=== PATIENT | female | born 1980 | race American Indian/Alaskan Native ===

== ENCOUNTER 2017-01-12 23:37 | Emergency (ER) | payer MEDICARE ==
[2017-01-13 01:35] LABS: Basophils % (Auto) 0.2 % (0.0-1.8); Eosinophils % (Auto) 1.3 % (0.0-4.3); Hematocrit 36.3 % (30.3-42.9); Hemoglobin 12.2 gm/dl (10.1-14.3); Mean Corpuscular HGB Conc 34 % (30-34); Mean Corpuscular Hemoglobin 31 pg (28-32); Mean Corpuscular Volume 92 fl (79-97); Platelet Count 162 K/mm3 (140-440); Red Blood Count 3.95 M/mm3 (3.65-5.03); White Blood Count 9.9 K/mm3 (4.5-11.0)
[2017-01-13 01:56] LABS: Urine Drugs of Abuse Note Disclamer
[2017-01-13 02:23] LABS: Bilirubin,Urine NEG (Negative); Blood,Urine NEG (Negative); Ketones,Urine NEG (Negative); Leukocyte Esterase,Urine NEG (Negative); Mucus,Urine FEW /HPF; Nitrite,Urine NEG (Negative); Protein,Urine <15 mg/dL mg/dL (Negative)
[2017-01-13 02:32] LABS: RBC,Urine < 1.0 /HPF (0.0-6.0)
--- NOTE | 2017-01-13 03:27 | Emergency Department Report ---
ED Psych HPI - General Chief Complaint: Psych Stated Complaint: DELUSIONAL Time Seen by Provider: 01/13/17 03:24 Source: patient Mode of arrival: Ambulatory - History of Present Illness Initial Comments: She is a 36-year-old female with history of bipolar and schizophrenia who presents with delusions. Patient states that she is hearing auditory hallucinations and the voices are tolerated to multiple things. Patient states that she is very anxious. She states that she use MrKaley in vagus shot and then the severity of her symptoms are severe. Nothing makes it better or worse. Patient denies being in any pain. She also states that she currently denies any suicidal or homicidal ideation. But she states that if she goes without any treatment she "doesn't know what I'll do." - Related Data Home Medications Medication Instructions Recorded Confirmed Last Taken Invega Sustenna (Nf) 156 mg IM QMONTH 01/13/17 01/13/17 Unknown RisperDAL 3 mg PO BID 01/13/17 01/13/17 Unknown Allergies Allergy/AdvReac Type Severity Reaction Status Date / Time No Known Allergies Allergy Unverified 01/18/16 12:23 ED Review of Systems ROS: Stated complaint: DELUSIONAL Other details as noted in HPI Constitutional: denies: chills, fever Eyes: denies: eye pain, eye discharge, vision change ENT: denies: ear pain, throat pain Respiratory: denies: cough, shortness of breath, wheezing Cardiovascular: denies: chest pain, palpitations Endocrine: no symptoms reported Gastrointestinal: denies: abdominal pain, nausea, diarrhea Genitourinary: denies: urgency, dysuria, discharge Musculoskeletal: denies: back pain, joint swelling, arthralgia Skin: denies: rash, lesions Neurological: denies: headache, weakness, paresthesias Psychiatric: anxiety, depression, auditory hallucinations Hematological/Lymphatic: denies: easy bleeding, easy bruising ED Past Medical Hx - Past Medical History Hx Psychiatric Treatment: Yes (Bipolar, Schizoaffective, Paranoid) - Surgical History Additional Surgical History: Tonsillectomy - Social History Smoking Status: Current Some Day Smoker - Medications Home Medications: Home Medications Medication Instructions Recorded Confirmed Last Taken Type Invega Sustenna (Nf) 156 mg IM QMONTH 01/13/17 01/13/17 Unknown History RisperDAL 3 mg PO BID 01/13/17 01/13/17 Unknown History ED Physical Exam - General Limitations: No Limitations General appearance: alert, in no apparent distress - Head Head exam: Present: atraumatic, normocephalic - Eye Eye exam: Present: normal appearance - ENT ENT exam: Present: mucous membranes moist - Neck Neck exam: Present: normal inspection - Respiratory Respiratory exam: Present: normal lung sounds bilaterally. Absent: respiratory distress - Cardiovascular Cardiovascular Exam: Present: regular rate, normal rhythm. Absent: systolic murmur, diastolic murmur, rubs, gallop - GI/Abdominal GI/Abdominal exam: Present: soft, normal bowel sounds - Extremities Exam Extremities exam: Present: normal inspection - Back Exam Back exam: Present: normal inspection - Neurological Exam Neurological exam: Present: alert, oriented X3 - Psychiatric Psychiatric exam: Present: depressed, anxious, flat affect. Absent: homicidal ideation, suicidal ideation - Skin Skin exam: Present: warm, dry, intact, normal color. Absent: rash ED Course Vital Signs 01/13/17 01/13/17 01/13/17 00:49 02:22 09:14 Temperature 98.1 F 98.3 F 98.5 F Pulse Rate 107 H 68 76 Respiratory 18 16 20 Rate Blood Pressure 133/60 Blood Pressure 133/60 124/68 100/59 [Left] O2 Sat by Pulse 97 97 Oximetry 01/13/17 01/13/17 09:15 19:50 Temperature 97.6 F 98.6 F Pulse Rate 92 H 77 Respiratory 18 20 Rate Blood Pressure Blood Pressure 117/64 131/63 [Left] O2 Sat by Pulse 100 Oximetry ED Medical Decision Making - Lab Data Result diagrams: 01/13/17 01:02 01/13/17 01:02 Lab Results 01/13/17 01/13/17 01/13/17 Range/Units 01:02 01:02 01:02 WBC (4.5-11.0) K/mm3 RBC (3.65-5.03) M/mm3 Hgb (10.1-14.3) gm/dl Hct (30.3-42.9) % MCV (79-97) fl MCH (28-32) pg MCHC (30-34) % RDW (13.2-15.2) % Plt Count (140-440) K/mm3 Lymph % (Auto) (13.4-35.0) % [place] % (Auto) (0.0-7.3) % Eos % (Auto) (0.0-4.3) % Baso % (Auto) (0.0-1.8) % Lymph # (1.2-5.4) K/mm3 [place] # (0.0-0.8) K/mm3 Eos # (0.0-0.4) K/mm3 Baso # (0.0-0.1) K/mm3 Seg Neutrophils % (40.0-70.0) % Seg Neutrophils # (1.8-7.7) K/mm3 Sodium 138 (137-145) mmol/L Potassium 4.0 (3.6-5.0) mmol/L Chloride 100.0 (98-107) mmol/L Carbon Dioxide 22 (22-30) mmol/L Anion Gap 20 mmol/L BUN 14 (7-17) mg/dL Creatinine 0.8 (0.7-1.2) mg/dL Estimated GFR > 60 ml/min BUN/Creatinine Ratio 17.50 % Glucose 83 (65-100) mg/dL Calcium 8.7 (8.4-10.2) mg/dL HCG, Qual Negative (Negative) Urine Color (Yellow) Urine Turbidity (Clear) Urine pH (5.0-7.0) Ur Specific [place] (1.003-1.030) Urine Protein (Negative) mg/dL Urine Glucose (UA) (Negative) mg/dL Urine Ketones (Negative) mg/dL Urine Blood (Negative) Urine Nitrite (Negative) Urine Bilirubin (Negative) Urine Urobilinogen (<2.0) mg/dL Ur Leukocyte Esterase (Negative) Urine WBC (Auto) (0.0-6.0) /HPF Urine RBC (Auto) (0.0-6.0) /HPF U Epithel Cells (Auto) (0-13.0) /HPF Urine Mucus /HPF Urine Opiates Screen Urine Methadone Screen Ur Barbiturates Screen Ur Phencyclidine Scrn Ur Amphetamines Screen U Benzodiazepines Scrn Urine Cocaine Screen U Marijuana (THC) Screen Drugs of Abuse Note Plasma/Serum Alcohol < 0.01 (0-0.07) gm% 01/13/17 01/13/17 01/13/17 Range/Units 01:02 01:26 01:26 WBC 9.9 (4.5-11.0) K/mm3 RBC 3.95 (3.65-5.03) M/mm3 Hgb 12.2 (10.1-14.3) gm/dl Hct 36.3 (30.3-42.9) % MCV 92 (79-97) fl MCH 31 (28-32) pg MCHC 34 (30-34) % RDW 14.0 (13.2-15.2) % Plt Count 162 (140-440) K/mm3 Lymph % (Auto) 32.7 (13.4-35.0) % [place] % (Auto) 6.7 (0.0-7.3) % Eos % (Auto) 1.3 (0.0-4.3) % Baso % (Auto) 0.2 (0.0-1.8) % Lymph # 3.2 (1.2-5.4) K/mm3 [place] # 0.7 (0.0-0.8) K/mm3 Eos # 0.1 (0.0-0.4) K/mm3 Baso # 0.0 (0.0-0.1) K/mm3 Seg Neutrophils % 59.1 (40.0-70.0) % Seg Neutrophils # 5.9 (1.8-7.7) K/mm3 Sodium (137-145) mmol/L Potassium (3.6-5.0) mmol/L Chloride (98-107) mmol/L Carbon Dioxide (22-30) mmol/L Anion Gap mmol/L BUN (7-17) mg/dL Creatinine (0.7-1.2) mg/dL Estimated GFR ml/min BUN/Creatinine Ratio % Glucose (65-100) mg/dL Calcium (8.4-10.2) mg/dL HCG, Qual (Negative) Urine Color Yellow (Yellow) Urine Turbidity Clear (Clear) Urine pH 5.0 (5.0-7.0) Ur Specific [place] 1.023 (1.003-1.030) Urine Protein <15 mg/dl (Negative) mg/dL Urine Glucose (UA) Neg (Negative) mg/dL Urine Ketones Neg (Negative) mg/dL Urine Blood Neg (Negative) Urine Nitrite Neg (Negative) Urine Bilirubin Neg (Negative) Urine Urobilinogen 2.0 (<2.0) mg/dL Ur Leukocyte Esterase Neg (Negative) Urine WBC (Auto) 2.0 (0.0-6.0) /HPF Urine RBC (Auto) < 1.0 (0.0-6.0) /HPF U Epithel Cells (Auto) 1.0 (0-13.0) /HPF Urine Mucus Few /HPF Urine Opiates Screen Presumptive negative Urine Methadone Screen Presumptive negative Ur Barbiturates Screen Presumptive negative Ur Phencyclidine Scrn Presumptive negative Ur Amphetamines Screen Presumptive negative U Benzodiazepines Scrn Presumptive negative Urine Cocaine Screen Presumptive positive U Marijuana (THC) Screen Presumptive positive Drugs of Abuse Note Disclamer Plasma/Serum Alcohol (0-0.07) gm% - Medical Decision Making Chief medical diagnosis: Psychotic episode Differential medical diagnosis: Substance induced mood disorder, bipolar disorder, schizophrenia CBC, CMP, urinalysis, urine drug screen and mental health evaluation Patient's blood work is unremarkable I will sign a 1013 on this patient because she is having active auditory hallucinations and she cannot take care of herself. She states she usually needs to be in the hospital when this happens. Patient has a psych history and multiple admissions to psychiatric units. Discussed plan with patient and she agrees the plan. Critical care attestation.: If time is entered above; I have spent that time in minutes in the direct care of this critically ill patient, excluding procedure time. ED Disposition Clinical Impression: Anxiety Psychosis Qualifiers: Psychosis type: unspecified psychosis type Qualified Code(s): F29 - Unspecified psychosis not due to a substance or known physiological condition Disposition: DC/TX-65 PSY HOSP/PSY UNIT Is pt being admited?: No Does the pt Need Aspirin: No Condition: Stable Referrals: ROB SALAZAR MD [Primary Care Provider] - 3-5 Days
[2017-01-13] MEDS ORDERED: TYLENOL PO PRN (05:43)
[2017-01-13] MEDS ORDERED: MILK OF MAGNESIA PO PRN (05:43)
[2017-01-13] MEDS ORDERED: ALUM-MAG HYDROX-SIMETH 200-200-20MG/5ML PO PRN (05:43)
[2017-01-13 07:31] LABS: Anion Gap 20 mmol/L; Blood Urea Nitrogen 14 mg/dL (7-17); Calcium 8.7 mg/dL (8.4-10.2); Carbon Dioxide 22 mmol/L (22-30); Glucose 83 mg/dL (65-100); Sodium 138 mmol/L (137-145)
--- NOTE | 2017-01-14 18:04 | Consultation ---
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 Today patient is calm and cooperative during the assessment. She presented with a tangential thought process during our conversation. She had to be redirected multiple times to stay on track. 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 She stated that she get the monthly Invega injection and it was due on the the January. She denies SI/HI's and VH's. She stated that she was hearing voices earlier today, but know how to ignore them. She denies a poor appetite and erratic sleep. She denies recreational drug use, but she is positive for marijuana and cocaine. She denies excessive alcohol consumption (etoh). Medications and Allergies Allergies Allergy/AdvReac Type Severity Reaction Status Date / Time No Known Allergies Allergy Unverified 01/18/16 12:23 Home Medications Medication Instructions Recorded Confirmed Last Taken Type Invega Sustenna (Nf) 156 mg IM QMONTH 01/13/17 01/13/17 Unknown History RisperDAL 3 mg PO BID 01/13/17 01/13/17 Unknown History Active Meds: Active Medications Acetaminophen (Tylenol) 650 mg PO Q4HR PRN PRN Reason: Pain MILD(1-3)/Fever >100.5/HUA Al Hydrox/Mg Hydrox/Simethicone (Alum-Mag Hydrox-Simeth [phone]/5ml) 30 ml PO Q4HR PRN PRN Reason: Indigestion Magnesium Hydroxide (Milk Of Magnesia) 30 ml PO Q12HR PRN PRN Reason: Constipation Past psychiatric history - Past Medical History Past Medical History: No medical history Past Surgical History: Other (Tonsillectomy) - past Psychiatric treatment and history Psych: Bipolar psychiatric treatment history: Multiple inpatient psy services. Fam hx of Bipolar DO. - Social History Social history: lives with family, other (HS and College graduate) Mental Status Exam - Vital signs Last Vital Signs Temp 98.5 F 01/14/17 18:01 Pulse 72 01/14/17 18:01 Resp 16 01/14/17 18:01 BP 99/65 01/14/17 18:01 Pulse Ox 100 01/14/17 18:01 - Exam Narrative exam: ROS: (+) psychosis MSE: Appearance: calm, cooperative Behavior: regular eye contact Speech: regular rate and tone Mood: "okay" Affect: labile Thought Process: tangential Thought Content: denies SI/HI's and VH's, disorganized Motor Activity: ambulatory Cognition: A/Ox 3 Insight: limited Judgment: limited Results Result Diagrams: 01/13/17 01:02 01/13/17 01:02 All other labs normal. Assessment and Plan Assessment and plan: Impression: Historical Dx: Bipolar/Schizophrenia. Unspecified Psychosis. Substance Use DO (cocaine/marijuana). Today patient is calm and cooperative during the assessment. Active AH's. DDx: Schizoaffective DO, Delusional DO, R/O Substance Induced Psychosis Recommendation/Plan: Continue 1013 with placement to inpatient psy services. Start Risperdal 1 mg PO HS for psychotic symptoms. Discussed possible metabolic side effects of Risperdal with patient.
[2017-01-14] MEDS ORDERED: RisperDAL PO SCH (22:00)
[2017-01-15 09:25] VITALS: BP 110/73
--- NOTE | 2017-01-15 14:02 | Progress Note ---
Subjective - Reason for Consult Consult date: 01/15/17 Reason for consult: Psychiatry Follow-up - Chief Complaint Chief complaint: "Hello" 36-year-old female with history of bipolar and schizophrenia who presents with delusions. Today patient is calm and cooperative during the assessment. 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 Yesterday, patient acknowledged that she has another name. She stated wanting to be a warp dyeing tender has always been a dream of hers. She stated being aware her Invega injection is due this month and will contact her psychiatrist Dr Lamas "KASANDRA" once discharged. She stated that she see her psychiatrist monthly. She denies SI/HI's, AVH's, and depression. She denies a sleep disturbance and a poor appetite. Per the staff, no behavioral disturbances overnight. Mental Status Exam - Vital signs Last Vital Signs Temp 98.9 F 01/15/17 09:22 Pulse 66 01/15/17 09:22 Resp 20 01/15/17 09:25 BP 110/73 01/15/17 09:22 Pulse Ox 98 01/15/17 09:25 - Exam Narrative exam: MSE: Appearance: calm, cooperative Behavior: regular eye contact Speech: regular rate and tone Mood: "okay" Affect: congruent to mood Thought Process: circumstantial Thought Content: denies SI/HI's and AVH's Motor Activity: ambulatory Cognition: A/Ox 3 Insight: fair Judgment: fair Assessment and Plan Impression: Historical Dx: Bipolar/Schizophrenia. Unspecified Psychosis. Substance Use DO (cocaine/marijuana). Today patient is calm and cooperative during the assessment. Recommendation/Plan: Rescind 1013. Continue Risperdal 1 mg PO HS. Patient will follow up with her psychiatrist Dr Lamas. She receives the monthly Invega injection. Discussed the importance to abstain from recreational drug use. Patient given outpatient rehab services for [facility].
--- NOTE | 2017-01-15 18:29 | Event Note ---
Date: 01/15/17 Patient is a 36-year-old who has been evaluated by psychiatry and has had her 1013 resended. Patient is not having any auditory or visual hallucinations. She denies having any suicidal or homicidal ideation. Patient is able to have a conversation and has clear call directed behavior. Patient will follow with the [facility] Department. I will give her a prescription of 1 mg of Risperdal at bedtime for 30 days. Medication recommendations are per psychiatrist's recommendations.
== END 2017-01-15 19:29 ==
LOC: ED 23:37 → EEVIPCON 23:37 → ED 01-15 19:29
DX: F29 Unspecified psychosis not due to a substance or known physiological condition (principal); F41.9 Anxiety disorder, unspecified; F31.9 Bipolar disorder, unspecified; Z72.0 Tobacco use
CPT/HCPCS: 36415; 80048; 80307; 81001; 84703; 85025; 99285; G0480; 80320